=== PATIENT | male | born 1975 | race Caucasian/White ===

== ENCOUNTER 2021-11-19 10:07 | Emergency (ER) | payer BC, SELFPAY ==
[2021-11-19 10:17] VITALS: BP 124/80; PULSE 83; RESP 18; TEMP 36.8; O2SAT 97; BMI 35.7
[2021-11-19 10:20] VITALS: BP 114/87; PULSE 86; RESP 16; O2SAT 95
--- NOTE | 2021-11-19 10:22 | ED_ITS ---
HPI - Back Pain/Injury General: Chief Complaint: Back Pain/Injury Stated Complaint: Lower Back Pain Time Seen by Provider: 11/19/21 10:09 Source: patient Mode of arrival: ambulatory Limitations: no limitations History of Present Illness: Patient is a nice 45-year-old male who presents to ED today with a complaint of mid and left lower back pain. Patient states pain began fairly immediately after lifting a heavy refrigerator 3 days ago. He states he has done this previously and responded well to conservative therapies as well as prescription steroid/muscle relaxers. He states pain seems to radia te down into his left buttock. He is ambulatory without assistance. He is denying saddle anesthesia or bowel/urinary retention/incontinence. MD elicited complaint: back pain Onset (ago): day(s) Timing: constant Severity: similar to previous episodes Pain scale (0-10): 8 Location: lumbar spine and left lower back Radiation: left upper leg Exacerbating factors: movement, walking and lifting Relieving factors: none Context: while lifting Associated symptoms: Deny abdominal pain, chills, difficulty walking, dysuria, fatigue, fever(s) or hematuria Review of Systems Const: Denies: fever(s), chills, body aches, fatigue or malaise Card: Denies: chest pain Resp: Denies: dyspnea GI: Denies: abdominal pain : Denies: flank pain, dysuria, hematuria or genital pain Musc: Reports: back pain; Denies: neck pain, extremity pain or joint pain Skin/Breast: Denies: rash Neuro: Denies: headache(s), numbness in extremities, weakness in extremities, sensory changes or difficulty walking Physical Exam Const: COMMON NORMALS: no acute distress, patient oriented x3, no limitations, alert and well nourished GENERAL APPEARANCE: cooperative NUTRITIONAL APPEARANCE: overweight ORIENTATION/CONSCIOUSNESS: Yes awake, Yes oriented to person, Yes oriented to place and Yes oriented to time Resp: COMMON NORMALS: normal respiratory effort and clear to auscultation bilaterally AUSCULTATION: clear to auscultation bilaterally Cardio: COMMON NORMALS: regular rate and regular rhythm RATE: regular rate RHYTHM: regular rhythm : COMMON NORMALS: Yes no CVA tenderness BLADDER/KIDNEY EXAM: Yes no CVA tenderness Back/Pelvis: COMMON NORMALS: no CVA tenderness THORACIC SPINE/UPPER BACK: Yes normal to inspection, Yes thoracic ROM normal, No thoracic spinal tenderness, No paraspinal muscle tenderness and No paraspinal muscle spasm LUMBAR SPINE/LOWER BACK: Yes normal to inspection, Yes ROM limited, Yes lumbar spinal tenderness (mid to lower L spine), Yes paraspinal muscle tenderness Lumbar paraspinal muscle tenderness: left, No paraspinal muscle spasm, No mass present and Yes straight leg raise negative bilaterally PELVIS: Yes sciatic notch tenderness on the left SACROILIAC JOINTS: Yes SI joint(s) abnormal SI joint details: tender to palpation (left) Extremity: COMMON NORMALS: normal to inspection, full ROM, capillary refill normal, no clubbing, cyanosis or edema, no calf tenderness and no pedal edema GENERAL: Yes normal exam except as noted Neuro: COMMON NORMALS: patient oriented x3, moves all extremities, no focal motor deficits and no sensory deficits noted SENSORIUM/ORIENTATION: Yes alert, Yes oriented to person, Yes oriented to place and Yes oriented to time MOTOR EXAM: 5/5 motor strength present throughout Skin: COMMON NORMALS: no rashes or lesions noted GENERAL SKIN EXAM: no rashes or lesions noted Course Vital Signs: Vital signs: Vital Signs Temperature 98.2 F 11/19/21 10:17 Pulse Rate 86 11/19/21 10:20 Respiratory Rate 16 11/19/21 10:20 Blood Pressure 114/87 11/19/21 10:20 Pulse Oximetry 95 11/19/21 10:20 MDM - Back Pain/Injury Medical Decision Making Patient feels better with IM medications given here. XR showing some facet joint arthritis and retrolisthesis. Will place patient on NSAIDs, muscle relaxers, and steroids at home. Recommend follow-up with PCP in 1 to 2 weeks if symptoms do not seem to improve. Labs Radiology Impressions Lumbar Spine X-Ray 11/19/21 10:26 IMPRESSION: 1. Facet joint arthritis moderate at L4-5 and L5-S1. 2. No fracture. 3. Retrolisthesis of L4 and L5 by 2 and 5 mm, respectively. Discharge Plan Discharge Patient Disposition: Home Clinical Impression: Strain of lumbar region Condition: Stable Prescriptions: New ibuprofen 800 mg tablet 800 mg PO Q8H PRN (Reason: pain) Qty: 20 0RF methocarbamol 750 mg tablet 1,500 mg PO Q8H Qty: 30 0RF Medrol (Patrick) 4 mg tablets,dose pack See Rx Instructions .ROUTE .COMPLEX Qty: 21 0RF Rx Instructions: orally per package directions No Action Lasix 40 mg Tablet 80 mg PO QAM PRN (Reason: Edema) 0RF lisinopril 20 mg Tablet 20 mg PO QAM 0RF Aspir-81 81 mg Tablet,Delayed Release (Dr/Ec) 81 mg PO QAM 0RF Discharge Orders: Discharge ED (Routine); Ordered 11/19/21 Ordered By: Neli Villaseñor Referrals: Екатерина Gerard NP [Primary Care Provider] - Coding Level of Care Code ED [employer] for Chg Fwd Exam Comprehensive
--- NOTE | 2021-11-19 10:26 | XR_ITS ---
WS: [id number] LUMBAR SPINE: 3 VIEWS TECHNIQUE: AP, lateral and L5-S1 spot. HISTORY: back pain COMPARISON: 07/16/2017 Very slight curvature of the lumbar curvature to the LEFT. 2 mm retrolisthesis of L4 and 5 mm retroli sthesis of L5. No fractures. Facet joint arthritis most significant at L4-5 and L5-S1. Progression of degenerative changes since t he prior study. Pedicles are all identified. SI joints are symmetric bilaterally. No soft tissue abnormalities. XR/XR lumbar spine 2-3V* [id number] IMPRESSION: 1. Facet joint arthritis moderate at L4-5 and L5-S1. 2. No fracture. 3. Retrolisthesis of L4 and L5 by 2 and 5 mm, respectively.
[2021-11-19] MEDS: dexamethasone 10 mg/mL INJ 8 MG IM (11:00)
[2021-11-19] MEDS: ketorolac 60 mg/2 mL INJ IM (11:01)
[2021-11-19] MEDS: orphenadrine 30 mg/mL Inj 2 mL 60 MG IM (11:01)
[2021-11-19 11:59] VITALS: BP 118/84; PULSE 82; O2SAT 95
== END 2021-11-19 11:55 | disposition home or self-care (01) ==
PROVIDERS: Emergency Provider Physician Assistant; PCP Nurse Practitioner Family
DX: S39.012A Strain of muscle, fascia and tendon of lower back, initial encounter (principal); X50.0XXA Overexertion from strenuous movement or load, initial encounter
CPT/HCPCS: 72100; 96372; 99283; J1100; J1885; J2360

== ENCOUNTER → 2025-04-25 11:30 | Outpatient (BNVA) | payer OTHER, SELFPAY | PROVIDERS: PCP Family Medicine; Visit Provider Family Medicine | DX: R79.89 Other specified abnormal findings of blood chemistry (principal); I50.20 Unspecified systolic (congestive) heart failure; I11.0 Hypertensive heart disease with heart failure; E87.6 Hypokalemia; T50.2X5A Adverse effect of carbonic-anhydrase inhibitors, benzothiadiazides and other diuretics, initial encounter; Z12.5 Encounter for screening for malignant neoplasm of prostate; E55.9 Vitamin D deficiency, unspecified | CPT/HCPCS: 80053; 80061; 82306; 82607; 83036; 83735; 83880; 84443; 85025; G0103 ==

== ENCOUNTER → 2025-05-23 07:56 | Outpatient (BNVA) | payer OTHER, SELFPAY | PROVIDERS: PCP Family Medicine; Visit Provider Family Medicine | DX: R06.02 Shortness of breath (principal); R05.9 Cough, unspecified; R50.9 Fever, unspecified; M79.10 Myalgia, unspecified site; S22.42XD Multiple fractures of ribs, left side, subsequent encounter for fracture with routine healing; X58.XXXA Exposure to other specified factors, initial encounter | CPT/HCPCS: 71046 ==

== ENCOUNTER → 2025-05-24 08:04 | Outpatient (BNVA) | payer OTHER, SELFPAY | PROVIDERS: PCP Family Medicine; Visit Provider Family Medicine | DX: R50.9 Fever, unspecified (principal) | CPT/HCPCS: 87400; 87420; 87426 ==